=== PATIENT | male | born 1975 | race Caucasian/White ===

== ENCOUNTER 2022-10-21 07:53 | Emergency (ER) | payer OTHER ==
[~2022-10-21] VITALS: Ht 175.3 cm; Wt 79.4 kg
[2022-10-21] MEDS ORDERED: MIRALAX17 GM PO (08:05)
== END 2022-10-21 12:54 | disposition home or self-care (01) ==
LOC: ER 07:53
DX: J10.1 Influenza due to other identified influenza virus with other respiratory manifestations (principal); R10.13 Epigastric pain